=== PATIENT | female | born 1975 | race Caucasian/White ===

== ENCOUNTER 2016-09-08 19:54 | Emergency (ER) | payer SELFPAY ==
[2016-09-08 21:03] LABS: BASOPHILS 0.4 % (0.0-2.0); HEMATOCRIT 43.4 % (36.0-48.0); HEMOGLOBIN 14.2 g/dL (12-16); IMMATURE GRANULOCYTES 0.2 % (0-5); LYMPHOCYTES 27.2 % (15-50); MCH 27.7 pg (26.0-34.0); MCHC 32.7 g/dL (31.0-37.0); MCV 84.6 fL (80.0-100.0); MONOCYTES 5.5 % (2-11); NEUTROPHILS 65.7 % (40-80); PLATELET COUNT 289 10x3/uL (130-400); RBC 5.13 10x6/uL (4.00-5.40)
[2016-09-08 21:21] LABS: ALBUMIN 3.2 g/dL (3.4-5.0); ALKALINE PHOSPHATASE 117 U/L (46-116); ALT (SGPT) 31 U/L (10-68); BILIRUBIN - TOTAL 0.24 mg/dL (0.2-1.3); CALCIUM 8.7 mg/dL (8.5-10.1); CARBON DIOXIDE 22.8 mmol/L (21.0-32.0); CHLORIDE - SERUM 97 mmol/L (98-107); POTASSIUM - SERUM 3.6 mmol/L (3.5-5.1); PROTEIN - SERUM 7.4 g/dL (6.4-8.2); SODIUM 132 mmol/L (136-145); UREA NITROGEN 11 mg/dL (7-18); eGFR NON AFRICAN AMERICAN 64 mL/min (90-120)
[2016-09-08 21:24] LABS: CALC OSMOLALITY 293 mosm/kg (275-300); TROPONIN-I < 0.017 ng/mL (0.000-0.060)
[2016-09-08 21:27] LABS: GLUCOSE 645 mg/dL (74-106)
[2016-09-08 22:35] LABS: APPEARANCE CLEAR (CLEAR); BILIRUBIN NEGATIVE (NEGATIVE); COLOR STRAW (YELLOW); GLUCOSE 1000 mg/dL (NEGATIVE); KETONE NEGATIVE (NEGATIVE); LEUKOCYTE ESTERASE TRACE (NEGATIVE); NITRITE NEGATIVE (NEGATIVE); PROTEIN NEGATIVE (NEGATIVE); UROBILINOGEN NORMAL (NORMAL)
[2016-09-08 22:37] LABS: BACTERIA FEW /hpf (NONE SEEN); RED CELLS - URINE 0-5 /hpf (0-5)
== END 2016-09-08 23:16 | disposition home or self-care (01) ==
LOC: D.ER 19:54
PROVIDERS: Emergency Medicine
DX: J20.9 Acute bronchitis, unspecified (principal); H10.33 Unspecified acute conjunctivitis, bilateral; E11.9 Type 2 diabetes mellitus without complications; J45.909 Unspecified asthma, uncomplicated

== ENCOUNTER 2017-10-10 21:07 | Observation (INO) | payer MEDICAID ==
[~2017-10-10] VITALS: Ht 162.6 cm; Wt 99.8 kg
--- NOTE | ~2017-10-10 | HEMODYNAMI ---
PATIENT:BHUMIKA LOPEZ MEDICAL RECORD: [id number] : 71 LOCATION:[facility] DMarloE18- [facility]# [id number] ADMISSION DATE: 10/11/17 Generatedon:10/11/201716:42 Patient name: BHUMIKA LOPEZ Patient #: [id number] SSN: DO B: 1975 Date of study: 10/11/2017 Page: Of Hemodynamic Procedure Report Patient Data Patient Demographics Procedure consent was obtained First Name: BHUMIKA Gender: Female Last Name: JESSICA : 1975 Patient #: [id number] Age: 42 year(s) Race: Unknown Additional ID: [id number] Contact details Address: [place] [address] State: [facility] Zip code: [address] Past Medical History Allergies: No known allergies Admission Admission Data Admission Date: 10/11/2017 Admission Time: 0:29 Room #: D.E18 Lab Results Lab Result Date: 10/11/2017 Lab Result Time: 0:00 Biochemistry Name Units Result Min Max BUN mg/dl 15 --(--*-)-- 7 18 Creatinine mg/dl 0.7 --(*---)-- 0.6 1.3 CBC Name Units Result Min Max Hemoglobin g/dl 13.5 --(*---)-- 13.5 17.5 Procedure Procedure Types Cath Procedure Diagnostic Procedure LHC LHC w/Coronaries Procedure Description Procedure Date Procedure Date: 10/11/2017 Procedure Start Time: 16:30 Procedure End Time: 16:38 Procedure Staff Name Function Tristan Key MD Performing Physician Jamie Vega RT Monitor Janette Johnson RT Scrub Boston Camacho RN Nurse Procedure Data Cath Procedure Fluoroscopy Diagnostic fluoroscopy Total fluoroscopy Time: 0.6 time: 0.6 min min Diagnostic fluoroscopy Total fluoroscopy dose: 296 dose: 296 mGy mGy Contrast Material Contrast Material Type Amount (ml) Isovue 300 30 Entry Location Entry Primary Successful Side Size Upsize Upsize Entry Closure Davidson ccessful Closure Location (Fr) 1 (Fr) 2 (Fr) Remarks Device Remarks Radial Right 6 Fr Mechanical artery Short Compression Estimated blood loss: 10 ml Diagnostic catheters Device Type Used For End Catheter Placement DIAGNOSTIC Hildebran 110cm 5 Procedure Fr catheter ([id number]) Procedure Complications No complications Procedure Medications Medication Administration Route Dosage Oxygen etCO2 Nasal cannula 2 l/min Heparin Flush Bag added to field 2 bags (1000units/500ml NS) 0.9% NaCl I.V. 100 ml/hr Radial Cocktail added to field 1 syringe (Verapomil 2mg/Nitro 400mcg/Heparin 1500units) Fentanyl I.V. 50 mcg Versed I.V. 1 mg Fentanyl I.V. 50 mcg Versed I.V. 1 mg Radial Cocktail added to field 1 syringe (Verapomil 2mg/Nitro 400mcg/Heparin 1500units) Hemodynamics Rest HGB: 13.5 (g/dl) Heart Rate: 83 (bpm) Pressure Samples Time Site Value (mmHg) Purpose Heart Use Rate(bpm) 16:32 LV 99/6,8 Snapshot 91 16:33 AO 120/86(100) Snapshot 89 Gradients Valve Time Site Site Mean SEP/DFP Peak To Heart Use 1 2 (mmHg) (sec/min) Peak Rate (mmHg) (bpm) Aortic 16:32 LV AO 15 Snapshots Pre Cath Intra NCS Post Cath Vital Signs Time Heart Resp SPO2 etCO2 NIBP (mmHg) Rhythm Pain Sedation Rate (ipm) (%) (mmHg) Status Level (bpm) 16:20:04 77 16 94 0 142/93(116) NSR 0 (11) 10(A) , No pain 16:24:13 77 16 98 30.7 140/95(125) NSR 0 (11) 10(A) , No pain 16:29:08 87 16 96 16.4 141/92(115) NSR 0 (11) 10(A) , No pain 16:33:18 87 16 96 35.2 117/80(95) NSR 0 (11) 9(A) , No pain 16:37:26 82 16 94 37.4 119/84(100) NSR 0 (11) 9(A) , No pain Medications Time Medication Route Dose Verified Delivered Reason Notes Ef fectiveness by by 16:22:35 Oxygen etCO2 2 l/min Tristan Camacho RN physician cannula 16:22:43 Heparin Flush added 2 bags Tristan Mead used for Bag to Yesi Camacho RN procedure (1000units/500ml field NS) 16:22:55 0.9% NaCl I.V. 100 Tristanmariya Randolphy Per ml/hr Yesi Camacho RN physician 16:23:22 Radial Cocktail added 1 Tristan Randolphy used for (Verapomil to syringe Yesi Camacho RN procedure 2mg/Nitro field 400mcg/Heparin 1500units) 16:28:31 Fentanyl I.V. 50 mcg Tristan Mead for Yesi Camacho RN sedation 16:28:38 Versed I.V. 1 mg Tristan Mead for Yesi Camacho RN sedation 16:30:33 Fentanyl I.V. 50 mcg Tristan Mead for Yesi Camacho RN sedation 16:30:37 Versed I.V. 1 mg Tristan Randolphy for Yesi Camacho RN sedation 16:30:50 Radial Cocktail added 1 Tristan Boston used for (Verapomil to syringe Yesi Camacho RN procedure 2mg/Nitro field 400mcg/Heparin 1500units) Procedure Log Time Note 15:42:17 Signed procedure consent form obtained from patient. 15:42:23 H&P Date Dictated: 10/11/2017 ER History on chart.. 15:42:32 Jamie ALBERT(R) sent for patient. Start room use. 15:44:48 Patient allergic to No known allergies 15:46:08 Lab Result : Creatinine 0.7 mg/dl 15:46:08 Lab Result : BUN 15 mg/dl 15:46:08 Lab Result : Hemoglobin 13.5 g/dl 16:03:15 Patient received from ED to CCL 2 Alert and oriented. Tansferred to table in Supine position. 16:03:16 Warm blankets applied, and panda hugger turned on for patient comfort. 16:03:17 Correct patient and procedure confirmed by team. 16:03:17 ECG and BP/O2 sat monitors applied to patient. 16:19:05 Baseline sample Acquired. 16:19:05 Vital chart was started 16:19:11 Rhythm: sinus rhythm 16:19:13 Full Disclosure recording started 16:19:15 Pre-procedure instructions explained to patient. 16:19:15 Pre-op teaching completed and patient verbalized understanding. 16:19:18 Family in waiting room. 16:19:19 Patient NPO since Midnight. 16:19:21 Is the patient allergic to Iodine/contrast media? No. 16:19:24 Is patient on blood thinner?Yes 16:19:28 ACC The patient was administered the following blood thiners within the last 24 hours: ACCPlavix 16:19:48 Loaded with Plavix in the ER 16:19:54 Patient diabetic? Yes. 16:19:58 If diabetic: On Metformin? Unknown 16:20:12 HCG/Urine : pending 16:20:15 Previous problem with sedation/anesthesia? No ? 16:20:17 Snore? Yes 16:20:18 Sleep apnea? No 16:20:19 Deviated septum? No 16:20:19 Opens mouth fully? Yes 16:20:20 Sticks out tongue? Yes 16:20:23 Airway obstruction? No ? 16:20:28 Dentures? No Lost teeth 16:20:33 Pre procedure: right dorsailis pedis pulse 1+ Palpable, but thready & weak; easily obliterated 16:20:34 Modified Nimesh's test Ulnar < 7 seconds 16:20:37 Patient pain scale 0/10 ?. 16:20:47 IV patent on arrival in right antecubital with 0.9% NaCl at [facility]. 16:21:06 Lab results completed and on chart. 16:21:22 Right Radial & Right Groin area was prepped with chlora-prep and draped in sterile fashion 16:21:23 Alarms reviewed by R. N. 16:21:23 Sharps counted by scrub and verified by R.N. 16:21:25 --------ALL STOP TIME OUT------ 16:21:26 Final Timeout: patient, procedure, and site verified with staff and physician. All members of the team are in agreement. 16:21:28 Right Radial & Right Groin site verified by team. 16:21:30 Physical assessment completed. ASA score P 2 - A patient with mild systemic disease as per Tristan Key MD. 16:21:34 Sedation plan: IV Moderate Sedation Medication:Versed, Fentanyl 16:22:35 Oxygen 2 l/min etCO2 Nasal cannula was administered by Boston Camacho RN; Per physician; 16:22:43 Heparin Flush Bag (1000units/500ml NS) 2 bags added to field was administered by Boston Camacho RN; used for procedure; 16:22:55 0.9% NaCl 100 ml/hr I.V. was administered by Boston Camacho RN; Per physician; 16:23:22 Radial Cocktail (Verapomil 2mg/Nitro 400mcg/Heparin 1500units) 1 syringe added to field was administered by Boston Camacho RN; used for procedure; 16:26:57 Lab results completed and on chart, negative. 16:28:31 Fentanyl 50 mcg I.V. was administered by Boston Camacho RN; for sedation; 16:28:38 Versed 1 mg I.V. was administered by Boston Camacho RN; for sedation; 16:28:41 Use device set Radial Dx or PCI 16:28:43 Tegaderm 4 x 4 (1626W) opened to sterile field. 16:28:44 ACIST Hand Control (33491) opened to sterile field. 16:28:45 ACIST Manifold (17772) opened to sterile field. 16:28:46 ACIST Syringe (50649) opened to sterile field. 16:28:46 Medline Cath Pack ([id number]) opened to sterile field. 16:28:46 Bag Decanter () opened to sterile field. 16:29:02 DIAGNOSTIC WIRE .035 260cm J wire (272259) opened to sterile field. 16:29:02 MBrace Wrist Support ([id number]) opened to sterile field. 16:29:07 SHEATH 6Fr Prelude Radial ([id number]) opened to sterile field. 16:29:10 Zero performed for pressure channel P1 16:30:19 Procedure started. 16:30:23 Local anesthetic to right radial artery with Lidocaine 2% by Tristan Key MD.INITIAL ACCESS ONLY 16:30:33 Fentanyl 50 mcg I.V. was administered by Boston Camacho RN; for sedation; 16:30:37 Versed 1 mg I.V. was administered by Boston Camacho RN; for sedation; 16:30:50 Radial Cocktail (Verapomil 2mg/Nitro 400mcg/Heparin 1500units) 1 syringe added to field was administered by Boston Camacho RN; used for procedure; 16:30:58 A 6 Fr Short sheath was inserted into the Right Radial artery 16:32:00 A DIAGNOSTIC Hildebran 110cm 5 Fr catheter ([id number]) was advanced over the wire and used for Procedure. 16:32:36 LV angiography performed. 16:32:37 LV gram done using CORTEZ 16:32:45 EF : 50 % 16:32:49 Injector settings: Ml/sec: 7, Volume: 15, 16:32:53 LCA angiography performed. 16:33:12 RCA angiography performed. 16:33:13 Catheter removed. 16:33:24 TR BAND Standard ([id number]) opened to sterile field. 16:33:38 Sheath removed intact; hemostasis achieved with Mechanical Compression to the Right Radial artery. 16:33:52 Procedure ended.(Physican Out) 16:36:11 Fluoroscopy time 00.60 minutes. 16:36:14 Fluoroscopy dose: 296 mGy 16:36:14 Flurop Dose total: 296 16:36:19 Contrast amount:Isovue 300 30ml. 16:37:11 Sharps counted by scrub and verified by R.N. 16:37:13 TR band inflated with 10cc of air. 16:37:15 Insertion/operative site no bleeding no hematoma. 16:37:17 Post Procedure Pulses reassessed and unchanged 16:37:19 Post-procedure physical assessment completed. ASA score P 2 - A patient with mild systemic disease as per Tristan Key MD. 16:37:21 Post procedure rhythm: unchanged. 16:37:24 Estimated blood loss: 10 ml 16:37:25 Post procedure instruction explained to patient.Patient verbalizes understanding. 16:37:26 Patient needs reinforcement of post procedure teaching. 16:37:31 Procedure and supply charges have been captured, reviewed, submitted and are correct. 16:37:34 Procedure Complication : No complications 16:38:20 Vital chart was stopped 16:38:20 See physician's report for complete and final results. 16:38:24 Report given to Pre/Post Procedure Room. 16:38:28 Patient transfered to Pre/Post Procedure Room with Stretcher. 16:38:30 Procedure ended. 16:38:30 Full Disclosure recording stopped 16:41:45 End room use (Document Last) Device Usage Item Name Manufacture Quantity Catalog Number Hospital Part Current M inimal Lot# / Charge Number Stock Stock Serial# Code Tegaderm 4 x 4 3M 1 [id number] [id number] [id number] [id number] 5 (1626W) ACIST Hand Acist 1 49008 214237 800341 333679 5 Control (81951) [employer] ACIST Manifold Acist 1 47131 668288 952092 748863 5 (88731) [employer] ACIST Syringe Acist 1 27282 724917 730109 942118 2 0 (75212) [employer] Inc Medline Cath Cardinal 1 [id number] 821212 26792 243515 5 Pack Health ([id number]) Bag Decanter Microtek 1 2002S 224418 04397 434471 5 (2001S) Medical Inc. DIAGNOSTIC WIRE St Juaquin 1 618355 303480 608753 926244 3 0 .035 260cm J wire (029882) MBrace Wrist Advanced 1 140-0250-00 833658 77774 602034 5 Support Vascular ([id number]) Dynamics SHEATH 6Fr Merit 1 [id number] 815035 132413 282467 5 Prelude Radial Medical ([id number]) DIAGNOSTIC Terumo 1 40-2179 326044 071706 597991 5 Hildebran 110cm 5 Fr catheter (032373) TR BAND Terumo 1 [id number] 611792 914626 583399 4 0 Standard ([id number]) Signature Audit Eagle Stage Time Signature Unsigned Intra-Procedure 10/11/2017 Jamie Vega 4:42:04 PM RT(R) Signatures Monitor : Jamie Vega RT Signature : Date : Time : [place] [id number] [place] [address]
--- NOTE | ~2017-10-10 | CN ---
PATIENT NAME:BHUMIKA RINCON MEDICAL RECORD: [id number] : 71 LOCATION:[facility] ADMIT DATE: 10/11/17 ACCOUNT: [id number] CONSULTING PHYSICIAN: LEAH CARDENAS MD REFERRING PHYSICIAN: JENARO MEJIA MD DATE OF CONSULTATION: 10/11/2017 Cardiology Consultation ADMITTING DIAGNOSES: 1. Unstable angina. 2. Diabetes. 3. Obesity. 4. Family history of coronary artery disease. HISTORY OF PRESENT ILLNESS: Ms. Rincon has no history of ischemic heart disease. She has family history of heart disease, diabetes, and obesity. She has been having chest pain since Monday, relatively typical anginal chest discomfort in the center of her chest, worse with doing anything, pain lasting for up to episodes of 2 hours, pain became quite severe this morning. It is escalating in an unstable fashion. REVIEW OF SYSTEMS: The patient reports easy bruising but reports no swollen glands. The patient reports no fever, no night sweats, no significant weight gain, no significant weight loss. No significant exercise tolerance. The patient reports no dry eyes, no irritation, no vision change. Patient reports no difficulty hearing and no ear pain. Patient reports no frequent nose bleeds or nose and sinus problems. Patient reports on arm pain on exertion. No shortness of breath while lying down. No history of heart murmur. Patient reports no cough, no wheezing or coughing up blood. Patient reports no abdominal pain, no vomiting. Normal appetite. No diarrhea and not vomiting blood. No nausea and no constipation. Patient reports no incontinence. No difficulty urinating. No hematuria. No increased frequency. Patient reports no muscle aches. No weakness, no arthralgias, no back pain. No swelling of the extremities. Patient reports no abnormal mole, no jaundice, no rashes. Reports no loss of consciousness. No weakness and no numbness. No seizures, dizziness, or headaches. The patient reports no depression, no sleep disturbance, feeling safe in a relationship and no alcohol abuse. Patient reports on fatigue. Reports no runny nose or sinus pressure. No itching, no hives, and no frequent sneezing. PHYSICAL EXAMINATION: GENERAL APPEARANCE: Well-nourished, well-developed, appears stated age. Level of distress, comfortable. PSYCHIATRIC: Mental status, alert, normal affect. Orientation, oriented to time, place and person. EYES: Lids and conjunctiva, noninjected. No discharge, no pallor. ENT: Lips, teeth, gums, normal dentition. Oropharynx, no cyanosis, no pallor. NECK: Carotid arteries, bilateral normal upstroke, no bruits, no thrills. JUGULAR VEINS: No jugular venous pressure or distention. CERVICAL LYMPH NODES: Nontender, nonenlarged. THYROID: Not enlarged. Nontender. No nodules. LUNGS: Respiratory effort, unlabored. CHEST: Normal curvature. No thoracic deformity. No chest wall tenderness. Percussion, resonant. Auscultation, clear. No wheezes, no rales, no rhonchi. CONSULT REPORT [id number] BHUMIKA RINCON CARDIOVASCULAR: Precordial exam, nondisplaced. No heaves or pericardial thrills. Rate and rhythm, regular. Heart sounds, normal S1, normal S2. No S3, no gallop, no rub. Systolic murmur, not heard. Diastolic murmur, not heard. EXTREMITIES: No cyanosis, no edema. Peripheral pulses, full and equal in all extremities, except as noted. No bruits appreciated. ABDOMEN: Soft, nondistended. Normal aorta. No bruit. Nontender. No masses. Liver, nontender, no hepatomegaly. Spleen, nontender, no splenomegaly. MUSCULOSKELETAL: No joint tenderness. No joint swelling. No erythema. NEUROLOGICAL: Normal gait, normal strength, normal tone. SKIN: Warm and dry. OVERALL IMPRESSION: Chest pain and unstable angina, we will proceed with coronary angiography. Further care depends upon findings of the angiography. TRANSINT:[id number] Voice Confirmation ID: [id number] DOCUMENT ID: [id number] LEAH CARDENAS MD at 1006 CC: [id number] DICTATION DATE: 10/11/17 1119 LAPEL STITCHER: 10/11/17 1259 DIS IN 10/11/17 [id number] [place] [address]
--- NOTE | ~2017-10-10 | OP ---
PATIENT NAME: BHUMIKA LOPEZ MEDICAL RECORD: [id number] :71 LOCATION:[facility] ADMISSION DATE:10/11/17 SURGEON: LEAH CARDENAS MD DATE OF OPERATION: 10/11/2017 PROCEDURES: 1. Left heart catheterization. 2. Selective coronary angiography. 3. Left ventriculogram. INDICATION: Chest pain. PROCEDURE IN DETAIL: After informed consent was obtained and after a detailed description of risks, benefits as well as alternative therapies, the patient elected to proceed with angiogram and heart catheterization. The right radial area was prepped and draped in normal sterile fashion. Right radial artery was cannulated via modified Seldinger technique with placement of 5-Greek sheath. All catheters exchanged through this sheath. FINDINGS: The left ventriculogram was performed in standard 30-degree CORTEZ view, reveals good cardiac wall motion throughout all segments. Overall ejection fraction estimated at 50%. SELECTIVE CORONARY ANGIOGRAPHY: Left main, left anterior descending, left circumflex, right coronary are all smooth-walled vessels with no angiographic evidence of coronary artery disease. OVERALL IMPRESSION: 1. No angiographic evidence of coronary artery disease. 2. Normal left heart pressures. 3. Normal left ventricular systolic function. Chest pain is noncardiac in etiology. No further cardiac workup needs to be ascertained. TRANSINT:[id number] Voice Confirmation ID: [id number] DOCUMENT ID: [id number] LEAH CARDENAS MD at 1006 CC: [id number] DICTATION DATE: 10/11/17 1638 EDUCATION ASSISTANT: 10/11/17 1806 DIS IN 10/11/17 [facility] [address] [id number]
[2017-10-10 23:35] LABS: HEMATOCRIT 40.2 % (36.0-48.0); HEMOGLOBIN 13.5 g/dL (12-16); LYMPHOCYTES 34.4 % (15-50); MCH 27.7 pg (26.0-34.0); MCHC 33.6 g/dL (31.0-37.0); MCV 82.5 fL (80.0-100.0); MEAN PLATELET VOLUME 9.4 fL (7.4-10.4); NEUTROPHILS 58.6 % (40-80); PLATELET COUNT 291 10x3/uL (130-400); RBC 4.87 10x6/uL (4.00-5.40); RDW 13.6 % (11.5-14.5); WBC 12.3 10x3/uL (4.8-10.8)
[2017-10-10 23:50] LABS: ALBUMIN 3.2 g/dL (3.4-5.0); ALKALINE PHOSPHATASE 109 U/L (46-116); ALT (SGPT) 22 U/L (10-68); BILIRUBIN - TOTAL 0.22 mg/dL (0.2-1.3); CALC OSMOLALITY 288 mosm/kg (275-300); CALCIUM 8.6 mg/dL (8.5-10.1); CARBON DIOXIDE 25.6 mmol/L (21.0-32.0); CHLORIDE - SERUM 101 mmol/L (98-107); CREATININE - SERUM 0.7 mg/dL (0.6-1.3); POTASSIUM - SERUM 3.8 mmol/L (3.5-5.1); PROTEIN - SERUM 7.5 g/dL (6.4-8.2); SODIUM 138 mmol/L (136-145); UREA NITROGEN 15 mg/dL (7-18); eGFR NON AFRICAN AMERICAN > 90 mL/min (90-120)
[2017-10-10 23:51] LABS: GLUCOSE 311 mg/dL (74-106)
[2017-10-11 00:01] LABS: CKMB 0.2 U/L (0.0-3.6); CREATINE KINASE 24 UL (21-215)
[2017-10-11 00:02] LABS: TROPONIN-I < 0.017 ng/mL (0.000-0.060)
[2017-10-11 16:27] LABS: HCG SERUM NEGATIVE (NEGATIVE)
== END 2017-10-11 18:42 | disposition home or self-care (01) ==
LOC: D.ER 21:07 → D.EDHOLD 10-11 00:29 → OBSVTIME 10-11 00:29 → D.EDHOLD 10-11 00:29 → D.CLR 10-11 16:51
PROVIDERS: Emergency Medicine; Family Medicine
DX: R07.89 Other chest pain (principal); Z82.49 Family history of ischemic heart disease and other diseases of the circulatory system; Z91.14 Patient's other noncompliance with medication regimen; E66.9 Obesity, unspecified; E11.65 Type 2 diabetes mellitus with hyperglycemia; F15.10 Other stimulant abuse, uncomplicated; F12.10 Cannabis abuse, uncomplicated